=== PATIENT | male | born 1965 | race Caucasian/White ===

== ENCOUNTER 2017-01-07 18:36 | Emergency (ER) | payer OTHER ==
[~2017-01-07] VITALS: Ht 172.7 cm; Wt 71.7 kg
[~2017-01-07 18:36] MED LIST: NOHOMEMEDS
[2017-01-07 19:23] LABS: HEMATOCRIT 46.1 % (38.0-50.0); MCH 30.6 PG (29.0-34.0); MCHC 34.1 G/DL (30.0-36.0); MCV 89.9 FL (86-99); PLATELET COUNT 191 K/uL (156-360); RBC DIS.WIDTH-CV 12.6 % (11.8-14.6); RBC DIS.WIDTH-SD 41.6 % (39-53); RED BLOOD COUNT 5.13 M/uL (4.00-5.50)
[2017-01-07 19:27] LABS: ADD MIUA? NO; BILIRUBIN NEGATIVE; BLOOD NEGATIVE; COLOR STRAW ((YELLOW)); GLUCOSE (STRIP) NEGATIVE; KETONES NEGATIVE; LEUKOCYTES NEGATIVE; NITRITE NEGATIVE; PROTEIN (STRIP) NEGATIVE; SPECIFIC GRAVITY 1.006 (1.000-1.030); UCUL ADDED? NO; UROBILINOGEN 0.2 MG/DL (0.2-1.0)
[2017-01-07 19:36] LABS: CHLORIDE 99 mEq/L (99-109); POTASSIUM 3.9 mEq/L (3.7-5.4); SODIUM 136 mEq/L (136-147)
[2017-01-07 19:39] LABS: GLUCOSE 78 mg/dL (70-99)
[2017-01-07 19:40] LABS: ANION GAP 13 MEQ/L (2-14)
[2017-01-07 19:41] LABS: TOTAL BILIRUBIN 0.7 mg/dL (0.0-1.0)
[2017-01-07 19:42] LABS: ALKALINE PHOSPHATASE 83 IU/L (3-129); GFR ESTIMATE (CALCULATED) > 59 mL/min/
[2017-01-07 19:43] LABS: UREA NITROGEN (BUN) 8 mg/dL (9-23)
[2017-01-07] MEDS ORDERED: AUGMENTIN875 MG PO (23:38)
[2017-01-07 23:39] LABS: LIPASE 53 U/L (1.0-51.0)
[2017-01-08 00:04] VITALS: BP 110/75
[2017-01-09] MEDS ORDERED: MOTRIN800 MG PO (07:26)
== END 2017-01-08 00:05 | disposition home or self-care (01) ==
LOC: EME 18:36
DX: J32.9 Chronic sinusitis, unspecified (principal); R10.30 Lower abdominal pain, unspecified; K59.00 Constipation, unspecified
CPT/HCPCS: 80053; 81003; 83690; 85027; 99281; 99284; J0696

== ENCOUNTER 2017-01-09 04:51 | Emergency (ER) | payer OTHER ==
[~2017-01-09] VITALS: Ht 172.7 cm; Wt 70.2 kg
[~2017-01-09 04:51] MED LIST changes: +AUGMENTIN875 MG PO
[2017-01-09 05:36] LABS: HEMATOCRIT 45.3 % (38.0-50.0); MCH 30.1 PG (29.0-34.0); MCHC 33.3 G/DL (30.0-36.0); MCV 90.4 FL (86-99); MEAN PLAT.VOLUME 10.5 uM^3 (9.0-12.4); PLATELET COUNT 170 K/uL (156-360); RBC DIS.WIDTH-CV 12.8 % (11.8-14.6); RBC DIS.WIDTH-SD 41.8 % (39-53); RED BLOOD COUNT 5.01 M/uL (4.00-5.50); WHITE BLOOD COUNT 2.5 K/uL (4.1-10.2)
[2017-01-09 05:40] LABS: CHLORIDE 102 mEq/L (99-109); POTASSIUM 4.1 mEq/L (3.7-5.4); SODIUM 138 mEq/L (136-147)
[2017-01-09 05:42] LABS: GLUCOSE 90 mg/dL (70-99)
[2017-01-09 05:43] LABS: ANION GAP 13 MEQ/L (2-14)
[2017-01-09 05:44] LABS: TOTAL BILIRUBIN 0.8 mg/dL (0.0-1.0)
[2017-01-09 05:46] LABS: ALKALINE PHOSPHATASE 83 IU/L (3-129); GFR ESTIMATE (CALCULATED) > 59 mL/min/
[2017-01-09 05:47] LABS: UREA NITROGEN (BUN) 11 mg/dL (9-23)
[2017-01-09 07:20] LABS: ADD MIUA? YES; BILIRUBIN NEGATIVE; BLOOD NEGATIVE; COLOR YELLOW ((YELLOW)); GLUCOSE (STRIP) NEGATIVE; KETONES NEGATIVE; LEUKOCYTES NEGATIVE; NITRITE NEGATIVE; PROTEIN (STRIP) NEGATIVE; SPECIFIC GRAVITY 1.012 (1.000-1.030); UROBILINOGEN 0.2 MG/DL (0.2-1.0)
[2017-01-09] MEDS ORDERED: MOTRIN800 MG PO (07:26)
[2017-01-09 07:41] LABS: BACTERIA NONE SEEN /HPF; CALCIUM OXALATE CRYSTALS 1+ /HPF; EPITHELIAL CELLS RARE /HPF; MUCUS TRACE /LPF; RED BLOOD CELLS NONE SEEN /HPF (0-5); UCUL ADDED? NO; WHITE BLOOD CELLS 0-5 /HPF (0-5)
[2017-01-09 08:16] VITALS: BP 115/77
== END 2017-01-09 08:16 | disposition home or self-care (01) ==
LOC: EME 04:51
DX: R10.9 Unspecified abdominal pain (principal); M79.1 Myalgia; F41.9 Anxiety disorder, unspecified
CPT/HCPCS: 80053; 81003; 85027; 99281; 99284

== ENCOUNTER 2017-01-10 21:38 | Emergency (ER) | payer OTHER ==
[~2017-01-10] VITALS: Ht 172.7 cm; Wt 73.0 kg
[~2017-01-10 21:38] MED LIST changes: +MOTRIN800 MG PO
[2017-01-11 00:49] LABS: EOSINOPHIL (%) 1.6 % (0-5); HEMATOCRIT 42.1 % (38.0-50.0); IMMATURE GRANULOCYTE (%) 0.4 % (0.0-0.7); INSTRUMENT ABS NEUTROPHIL CT 1.2 K/uL; LYMPHOCYTE COUNT 0.7 K/uL (1.0-2.8); MCH 30.3 PG (29.0-34.0); MCHC 33.7 G/DL (30.0-36.0); MEAN PLAT.VOLUME 10.5 uM^3 (9.0-12.4); MONOCYTE COUNT 0.5 K/uL (0-0.8); NEUTROPHIL (%) 49.6 % (45-76); NEUTROPHIL COUNT 1.2 K/uL (1.8-6.4); PLATELET COUNT 163 K/uL (156-360); RBC DIS.WIDTH-CV 12.6 % (11.8-14.6); RBC DIS.WIDTH-SD 41.6 % (39-53); RED BLOOD COUNT 4.68 M/uL (4.00-5.50); WHITE BLOOD COUNT 2.5 K/uL (4.1-10.2)
[2017-01-11 01:00] LABS: CHLORIDE 103 mEq/L (99-109); POTASSIUM 4.7 mEq/L (3.7-5.4); SODIUM 137 mEq/L (136-147)
[2017-01-11 01:02] LABS: GLUCOSE 88 mg/dL (70-99)
[2017-01-11 01:03] LABS: ANION GAP 6 MEQ/L (2-14)
[2017-01-11 01:04] LABS: TOTAL BILIRUBIN 0.7 mg/dL (0.0-1.0)
[2017-01-11 01:05] LABS: D-DIMER ELISA < 0.15 mg/L FEU (< 0.57)
[2017-01-11 01:06] LABS: ALKALINE PHOSPHATASE 73 IU/L (3-129); GFR ESTIMATE (CALCULATED) > 59 mL/min/
[2017-01-11 01:07] LABS: UREA NITROGEN (BUN) 11 mg/dL (9-23)
[2017-01-11 01:09] LABS: LIPASE 27 U/L (1.0-51.0)
[2017-01-11 01:11] LABS: TROP-I INTERPRETATION NEGATIVE; TROPONIN-I < 0.01 ng/mL (0.0-0.30)
[2017-01-11 02:17] VITALS: BP 135/87
== END 2017-01-11 02:34 | disposition home or self-care (01) ==
LOC: EME 21:38
PROVIDERS: Emergency Medicine
DX: F41.9 Anxiety disorder, unspecified (principal); R00.2 Palpitations; R07.89 Other chest pain; R05 Cough; R35.0 Frequency of micturition; M54.5 Low back pain; R93.8 Abnormal findings on diagnostic imaging of other specified body structures
CPT/HCPCS: 71020; 80053; 83690; 84439; 84443; 84484; 85025; 85379; 93005; 99281; 99284